=== PATIENT | female | born 1995 | race Caucasian/White ===

== ENCOUNTER 2021-04-22 08:14 | Emergency (ER) | payer BC, SELFPAY ==
[2021-04-22 08:21] VITALS: BP 120/77; PULSE 79; RESP 18; TEMP 37.1; O2SAT 99; BMI 25.8
--- NOTE | 2021-04-22 08:33 | W.ED.FEMALGU ---
HPI - Female Genitourinary General: Chief complaint: Vaginal Bleeding Stated complaint: 6 weeks with bleeding Time Seen by Provider: 04/22/21 08:33 Source: patient Mode of arrival: ambulatory Limitations: no limitations History of Present Illness: HPI Narrative: Patient is a 26-year-old presumed female at approximately 6 weeks here for complaints of vaginal bleeding and cramping. Patient tells me she has been cramping over the past 1.5 weeks but states she had severe cramps around 4 AM this morning. She states she was able to go back to sleep but when she woke up this morning she noticed a large amount of blood on her sheets. She has continued to bleed throughout the morning. She quantifies bleeding as a normal amount for a menstrual cycle. She continues to have cramping in her pelvis. She states was confirmed at a walk-in clinic in [place]. She has her first OB appointment at [facility] on May 15. LMP is 03/11/2021. No urinary symptoms. No fevers. MD elicited complaint: vaginal bleeding Onset (ago): hour(s) Severity: moderate Quality of pain: cramping Consistency: constant Vaginal discharge: none Vaginal bleeding: moderate Exacerbating factors: none Relieving factors: none Associated symptoms: Deny abdominal pain, headache(s), nausea or vaginal discharge Treatment prior to arrival: none Patient : Yes Date of Last Menstrual Period: 03/11/21 Review of Systems Const: Denies: fever(s), chills, body aches, fatigue or malaise Card: Denies: chest pain Resp: Denies: dyspnea GI: Denies: abdominal pain, nausea, vomiting or diarrhea : Reports: vaginal bleeding and pelvic pain; Denies: flank pain, difficulty voiding, dysuria, urinary frequency, urinary urgency, urinary hesitancy, vaginal odor or vaginal discharge Skin/Breast: Denies: rash Neuro: Denies: headache(s) [facility] ED Female Reproductive History: Date of last menstrual period: 03/11/21 Physical Exam Const: COMMON NORMALS: no acute distress, average body habitus, patient oriented x3, no limitations, healthy appearing, alert and well nourished GENERAL APPEARANCE: cooperative ORIENTATION/CONSCIOUSNESS: Yes awake, Yes oriented to person, Yes oriented to place and Yes oriented to time HENMT: COMMON NORMALS: normocephalic and atraumatic HEAD & SCALP: normocephalic and atraumatic Resp: COMMON NORMALS: normal respiratory effort and clear to auscultation bilaterally AUSCULTATION: clear to auscultation bilaterally Cardio: COMMON NORMALS: regular rate and regular rhythm RATE: regular rate RHYTHM: regular rhythm GI: COMMON NORMALS: Normal to inspection, nondistended, normoactive bowel sounds present, Soft to palpation, No hepatosplenomegaly present and no masses PALPATION: Yes Soft to palpation, Yes Tenderness to palpation present (GI) (lower pelvis) and Yes No hepatosplenomegaly present : COMMON NORMALS: Yes no CVA tenderness BLADDER/KIDNEY EXAM: Yes no CVA tenderness Back/Pelvis: COMMON NORMALS: no CVA tenderness Extremity: COMMON NORMALS: normal to inspection Neuro: COMMON NORMALS: patient oriented x3 SENSORIUM/ORIENTATION: Yes alert, Yes oriented to person, Yes oriented to place and Yes oriented to time Skin: COMMON NORMALS: no rashes or lesions noted GENERAL SKIN EXAM: no rashes or lesions noted Course Vital Signs: Vital signs: Vital Signs Temperature 98.8 F 04/22/21 08:21 Pulse Rate 79 04/22/21 08:21 Respiratory Rate 18 04/22/21 08:21 Blood Pressure 120/77 04/22/21 08:21 Pulse Oximetry 99 04/22/21 08:21 MDM - Female MDM Narrative: Medical decision making narrative: Patient's hCG is 423. Her ultrasound possibly shows a very early gestational sac. She will need repeat hCG in 48 hours. She was written outpatient order for this. Results will be faxed to the walk-in clinic in [place] where she had her confirmed. Recommend returning to the ED for severe vaginal bleeding or cramping. Labs are stable at this time. UA with questionable UTI however patient is completely asymptomatic therefore we will culture and await results. Lab Data: Labs: Lab Results 04/22/21 04/22/21 04/22/21 Range/Units 09:02 09:02 09:02 WBC 8.0 (4.0-10.0) 10^3/ uL RBC 4.61 (4.1-5.3) 10^6/u L Hgb 13.7 (11.5-15.3) g/dL Hct 40.8 (37.0-47.0) % MCV 88.5 (81-99) fl MCH 29.7 (28.0-34.0) pg MCHC 33.6 (30.0-36.0) g/dL RDW 12.2 (12.1-15.1) % Plt Count 393 (130-400) 10^3/c mm MPV 9.3 (7.4-10.4) fL Neut % (Auto) 56.4 % Lymph % (Auto) 32.0 % [place] % (Auto) 9.7 % Eos % (Auto) 1.0 % Baso % (Auto) 0.7 % Neut # (Auto) 4.53 (1.8-7.7) 10^3/u L Lymph # (Auto) 2.6 (0.8-4.8) 10^3/u L [place] # (Auto) 0.8 (0.2-0.9) 10^3/u L Eos # (Auto) 0.1 (0.0-0.8) 10^3/u L Baso # (Auto) 0.1 (0.0-0.1) 10^3/u L Nucleated RBC % (a uto) 0 % Nucleated RBCs # 0.0 /100WBC Sodium 138 (136-145) mmol/L Potassium 3.2 L (3.5-5.1) mmol/L Chloride 103 (98-107) mmol/L Carbon Dioxide 25 (22-29) mmol/L Anion Gap 13.2 (5-19) BUN 9 (6-20) mg/dL Creatinine 0.5 (0.5-0.9) mg/dL GFR Calculation 151.6 H (90-130) mL/min Glucose 82 (65-115) mg/dL Calculated Osmolal ity 284 L (285-295) mOsm/k g Calcium 9.4 (8.5-10.5) mg/dL Total Bilirubin 0.4 (0.15-1.2) mg/dL AST 10 (0-32) U/L ALT 14 (0-33) U/L Alkaline Phosphata se 62 (35-105) IU/L Total Protein 6.9 (6.6-8.7) g/dL Albumin 4.3 (3.5-5.2) g/dL Globulin 2.6 (1.3-4.6) g/dL Ser , Bernadette i-Qnt 423.70 mIU/mL Urine Color (Yellow) Urine Appearance (CLEAR) Urine pH (5-7) Ur Specific Gravit y (1.005-1.030) Urine Protein (Negative) Urine Glucose (UA) (Normal) Urine Ketones (Negative) Urine Blood (Negative) Urine Nitrate (Negative) Urine Bilirubin (Negative) Urine Urobilinogen (Negative) mg/dL Ur Leukocyte Brenda ase (Negative) Urine RBC (0-2) /hpf Urine WBC (0-5) /hpf Ur Squamous Epith Cells (0-5) /hpf Amorphous Sediment Urine Bacteria (NONE) /hpf Urine Mucus /hpf Blood Type O Positive Rho(D) Type Positive / 4+ 04/22/21 Range/Units 09:02 WBC (4.0-10.0) 10^3/ uL RBC (4.1-5.3) 10^6/u L Hgb (11.5-15.3) g/dL Hct (37.0-47.0) % MCV (81-99) fl MCH (28.0-34.0) pg MCHC (30.0-36.0) g/dL RDW (12.1-15.1) % Plt Count (130-400) 10^3/c mm MPV (7.4-10.4) fL Neut % (Auto) % Lymph % (Auto) % [place] % (Auto) % Eos % (Auto) % Baso % (Auto) % Neut # (Auto) (1.8-7.7) 10^3/u L Lymph # (Auto) (0.8-4.8) 10^3/u L [place] # (Auto) (0.2-0.9) 10^3/u L Eos # (Auto) (0.0-0.8) 10^3/u L Baso # (Auto) (0.0-0.1) 10^3/u L Nucleated RBC % (a uto) % Nucleated RBCs # /100WBC Sodium (136-145) mmol/L Potassium (3.5-5.1) mmol/L Chloride (98-107) mmol/L Carbon Dioxide (22-29) mmol/L Anion Gap (5-19) BUN (6-20) mg/dL Creatinine (0.5-0.9) mg/dL GFR Calculation (90-130) mL/min Glucose (65-115) mg/dL Calculated Osmolal ity (285-295) mOsm/k g Calcium (8.5-10.5) mg/dL Total Bilirubin (0.15-1.2) mg/dL AST (0-32) U/L ALT (0-33) U/L Alkaline Phosphata se (35-105) IU/L Total Protein (6.6-8.7) g/dL Albumin (3.5-5.2) g/dL Globulin (1.3-4.6) g/dL Ser , Bernadette i-Qnt mIU/mL Urine Color Yellow (Yellow) Urine Appearance Cloudy (CLEAR) Urine pH 6.5 (5-7) Ur Specific Gravit y 1.020 (1.005-1.030) Urine Protein Neg (Negative) Urine Glucose (UA) Norm (Normal) Urine Ketones Negative (Negative) Urine Blood 3+ H (Negative) Urine Nitrate Positive H (Negative) Urine Bilirubin Neg (Negative) Urine Urobilinogen 1 H (Negative) mg/dL Ur Leukocyte Brenda ase Negative (Negative) Urine RBC 15-25 H (0-2) /hpf Urine WBC 0-4 H (0-5) /hpf Ur Squamous Epith Cells 0-4 H (0-5) /hpf Amorphous Sediment Not Reportable Urine Bacteria 4+ H (NONE) /hpf Urine Mucus 1+ /hpf Blood Type Rho(D) Type Imaging Data: US transvaginal: Radiologist's impression: [address] [id number] ReportSigned with Addenda Patient: Staci Rosenbreg #: [id number]: [id number]#:[id number]/Sex: 26 / FADM Date: 04/22/21Loc: ERRoom/Bed:Attending Dr: Ordering Provider/Ordering MD: Puja Aly Date of Service: 04/22/21 Procedure(s): US transvaginal [id number] Accession Number(s): [id number] Report Number: [id number] ADDENDUM The tiny fluid collection within the endometrial cavity measures approximately 2.7 mm in diameter. No pole is seen. Since the patient has a positive tests this could represent a very early gestational sac with an age of approximately 5 weeks 0 days. This fluid collection however was difficult to reproduce on later images. Follow-up beta HCG levels are advised. Addendum Dictated By: Roger Ayala Signed By: Nando Ayala Date/Time:04/22/21 1020Addendum Cosigned By: ADDENDUM US/US transvaginal [id number] Impression: A 2.7 mm fluid collection within the endometrial cavity could represent a very early gestational sac of 5 weeks 0 days but this was difficult to reproduce on the later images. Follow-up beta HCG levels are advised. Findings were discussed with Puja Aly at 04/22/2021 10:16 AM CDT. Addendum Dictated By: Roger Ayala Signed By: Nando Ayala Date/Time:04/22/21 1020Addendum Cosigned By: PROCEDURE INFORMATION: Exam: US Pelvis, Transvaginal Exam date and time: 04/22/2021 8:42 AM Age: 26 years old Clinical indication: Other: Vaginal bleeding/ cramping; Additional info: Approx 6 wks preg; Bleeding/cramping TECHNIQUE: Imaging protocol: Real-time transvaginal pelvic ultrasound with image documentation. Transvaginal imaging was used for better evaluation of the endometrium, adnexa, and/or cervix. COMPARISON: No relevant prior studies available. FINDINGS: Uterus/cervix: Uterus is normal. No uterine masses. Endometrial stripe is normal and measures 5.1 mm in thickness.. There is a tiny amount of fluid in the endometrial cavity which may represent blood and be consistent with the history of vaginal bleeding. Right adnexa: Normal. No mass. Normal ovarian blood flow. Left adnexa: Normal. No mass. Normal ovarian blood flow. Intraperitoneal space: No free fluid. US/US transvaginal [id number] IMPRESSION: Tiny amount of fluid within the endometrial cavity consistent with history of vaginal bleeding. No other significant abnormality. Dictated By:Nando Ayala By:Nando Ayala Date/Time:04/22/21 1005DD/ 1003 Discharge Plan Discharge Patient Disposition: Home Clinical Impression: Positive blood test Condition: Stable Discharge Orders: Discharge ED (Routine); Ordered 04/22/21 Ordered By: Puja Aly Activity Restrictions/Additional Instructions: As we discussed your hCG level is 423 today. The ultrasound was inconclusive but showed a small tiny collection that could be a very early gestational sac. As we discussed you need to have your hCG level repeated in 48 hours. You have been given an outpatient order form for this. You need to return to the emergency department for worsening or severe pelvic cramping or vaginal bleeding or any other concerns you may have. Coding Level of Care Code ED Slicing Machine Feeder for Tom Fwd Exam Comprehensive
--- NOTE | 2021-04-22 08:42 | USR_ITS ---
PROCEDURE INFORMATION: Exam: US Pelvis, Transvaginal Exam date and time: 04/22/2021 8:42 AM Age: 26 years old Clinical indication: Other: Vaginal bleeding/ cramping; Additional info: Approx 6 wks preg; Bleeding/cramping TECHNIQUE: Imaging protocol: Real-time transvaginal pelvic ultrasound with image documentation. Transvaginal imaging was used for better evaluation of the endometrium, adnexa, and/or cervix. COMPARISON: No relevant prior studies available. FINDINGS: Uterus/cervix: Uterus is normal. No uterine masses. Endometrial stripe is normal and measures 5.1 mm in thickness.. There is a tiny amount of fluid in the endometrial cavity which may represent blood and be consistent with the history of vaginal bleeding. Right adnexa: Normal. No mass. Normal ovarian blood flow. Left adnexa: Normal. No mass. Normal ovarian blood flow. Intraperitoneal space: No free fluid. US/US transvaginal [id number] IMPRESSION: Tiny amount of fluid within the endometrial cavity consistent with history of vaginal bleeding. No other significant abnormality.
[2021-04-22 09:19] LABS: Basophils # 0.1 10^3/uL (0.0-0.1); Basophils % 0.7 %; Eosinophils # 0.1 10^3/uL (0.0-0.8); Hematocrit 40.8 % (37.0-47.0); Hemoglobin 13.7 g/dL (11.5-15.3); Lymphocytes # 2.6 10^3/uL (0.8-4.8); Mean Corpuscular HGB Conc 33.6 g/dL (30.0-36.0); Mean Corpuscular Hemoglobin 29.7 pg (28.0-34.0); Mean Corpuscular Volume 88.5 fl (81-99); Mean Platelet Volume 9.3 fL (7.4-10.4); Monocytes # 0.8 10^3/uL (0.2-0.9); Monocytes % 9.7 %; Neutrophils # 4.53 10^3/uL (1.8-7.7); Neutrophils % 56.4 %; Nucleated Red Blood Cells % 0 %; Platelet Count 393 10^3/cmm (130-400); Red Blood Count 4.61 10^6/uL (4.1-5.3); Red Cell Distribution Width 12.2 % (12.1-15.1)
[2021-04-22 09:55] LABS: Alanine Aminotransferase 14 U/L (0-33); Albumin Level 4.3 g/dL (3.5-5.2); Alkaline Phosphatase 62 IU/L (35-105); Anion Gap 13.2 (5-19); Aspartate Amino Transferase 10 U/L (0-32); Blood Urea Nitrogen 9 mg/dL (6-20); Calcium 9.4 mg/dL (8.5-10.5); Carbon Dioxide 25 mmol/L (22-29); Chloride 103 mmol/L (98-107); Globulin 2.6 g/dL (1.3-4.6); Glomerular Filtration Rate 151.6 mL/min (90-130); Glucose 82 mg/dL (65-115); Osmolality Calculated 284 mOsm/kg (285-295); Potassium 3.2 mmol/L (3.5-5.1); Sodium 138 mmol/L (136-145); Total Bilirubin 0.4 mg/dL (0.15-1.2); Total Protein 6.9 g/dL (6.6-8.7)
[2021-04-22 10:29] LABS: Add Urine Microscopic? YES; Bilirubin Urine Neg (Negative); Blood Urine 3+ (Negative); Glucose Urine UA Norm (Normal); Ketones Urine Negative (Negative); Leukocyte Esterase Urine Negative (Negative); Nitrate Urine Positive (Negative); Protein Urine Neg (Negative); Urine Appearance Cloudy (CLEAR); Urine Color Yellow (Yellow); Urobilinogen Urine 1 mg/dL (Negative); pH Urine 6.5 (5-7)
[2021-04-22 10:32] LABS: Bacteria Urine 4+ /hpf; RBC Urine 15-25 /hpf (0-2); Squamous Epithelial Cell Urine 0-4 /hpf (0-5); WBC Urine 0-4 /hpf (0-5)
[2021-04-22 10:33] LABS: Add Urine Culture? Yes; Mucus Urine 1+ /hpf
== END 2021-04-22 10:42 | disposition home or self-care (01) ==
PROVIDERS: Emergency Provider Physician Assistant
DX: O20.9 Hemorrhage in early pregnancy, unspecified (principal); Z3A.01 Less than 8 weeks gestation of pregnancy
CPT/HCPCS: 76830; 80053; 81001; 84702; 85025; 86900; 87077; 87086; 87186; 99283

== ENCOUNTER 2021-04-24 09:58 | Outpatient (CLI) | payer BC, SELFPAY | END 2021-04-24 09:59 | disposition home or self-care (01) | LOC: LAB 10:03 | PROVIDERS: Visit Provider Physician Assistant | DX: O46.90 Antepartum hemorrhage, unspecified, unspecified trimester (principal) | CPT/HCPCS: 36415; 84702 ==